=== PATIENT | male | born 1990 | race Caucasian/White ===

== ENCOUNTER 2018-04-28 00:03 | Emergency (ER) | payer OTHER ==
[~2018-04-28] VITALS: Ht 185.4 cm; Wt 95.3 kg
[2018-04-28 00:26] VITALS: BP 113/73
[2018-04-28] MEDS ORDERED: AMOXICILLIN TRIHYDRATE 250 MG CAPSULE PO ONE (01:00)
[2018-04-28] MEDS ORDERED: IBUPROFEN 600 MG TABLET PO ONE ×2 (01:00→01:47)
[2018-04-28] MEDS ORDERED: AMOXICILLIN TRIHYDRATE 250 MG CAPSULE ONE (01:47)
== END 2018-04-28 01:55 | disposition home or self-care (01) ==
LOC: ER 00:26
DX: J03.90 Acute tonsillitis, unspecified (principal); F17.210 Nicotine dependence, cigarettes, uncomplicated; F10.10 Alcohol abuse, uncomplicated
CPT/HCPCS: 71045-TC; A4606; Z7610

== ENCOUNTER 2018-06-18 13:30 | Emergency (ER) | payer OTHER ==
[~2018-06-18] VITALS: Ht 185.4 cm; Wt 90.7 kg
[2018-06-18 13:36] VITALS: BP 124/71
[2018-06-18] MEDS ORDERED: MORPHINE SULFATE INJ 4 MG/ML DISP.SYRIN ONE (14:00)
[2018-06-18] MEDS ORDERED: MORPHINE SULFATE INJ 10 MG/ML DISP.SYRIN IM ONE (14:00)
[2018-06-18] MEDS ORDERED: HYDROCODONE/APAP 5/325MG 1 EACH TABLET ONE (14:55)
[2018-06-18] MEDS ORDERED: HYDROCODONE/APAP 5/325MG 1 EACH TABLET PO ONE (15:00)
== END 2018-06-18 15:03 | disposition home or self-care (01) ==
LOC: ER 13:33
DX: M54.5 Low back pain (principal); F17.200 Nicotine dependence, unspecified, uncomplicated
CPT/HCPCS: A4606; J2270; Z7610

== ENCOUNTER 2018-11-30 22:38 | Emergency (ER) | payer OTHER ==
[~2018-11-30] VITALS: Ht 185.4 cm; Wt 102.1 kg
--- NOTE | 2018-11-30 23:04 | NUR ---
BIBSELF C/O COUGH X2 WEEK. YELLOW SPUTUM. -FEVER +HEADACHE. COUGH IS MOSTLY DRY, SOMETIMES PRODUCES SPUTUM. PT IS AOX4, AMBULATORY, VSS, RR EVEN AND UNLABORED. SKIN WARM, DRY, INTACT. NO ACUTE DISTRESS NOTED. NO OTHER COMPLAINTS AT THIS TIME. READY FOR EVAL.
[2018-11-30] MEDS ORDERED: ACETAMINOPHEN ES 500 MG TABLET ONE (23:09)
[2018-11-30] MEDS ORDERED: predniSONE 20 MG TABLET ONE (23:10)
[2018-11-30] MEDS ORDERED: ALBUTEROL FS 2.5 MG/3 ML VIAL.NEB ONE ×2 (23:17→23:43)
[2018-11-30] MEDS ORDERED: IPRATROPIUM NEB FS 0.5 MG/2.5 ML AMPUL.NEB ONE ×2 (23:17→23:43)
--- NOTE | 2018-11-30 23:19 | NUR ---
RT AT BEDSIDE FOR BREATHING TX
--- NOTE | 2018-11-30 23:27 | NUR ---
REPORT GIVEN TO MARQUEZ BRENNAN FOR KHAN[facility]
[2018-11-30] MEDS ORDERED: ALBUTEROL FS 2.5 MG/3 ML VIAL.NEB NEB ONE (23:30)
[2018-11-30] MEDS ORDERED: predniSONE 20 MG TABLET PO ONE (23:30)
[2018-11-30] MEDS ORDERED: ACETAMINOPHEN 325 MG TABLET PO ONE (23:30)
[2018-11-30] MEDS ORDERED: IPRATROPIUM NEB FS 0.5 MG/2.5 ML AMPUL.NEB NEB ONE (23:30)
--- NOTE | 2018-11-30 23:44 | NUR ---
XRAY AT BEDSIDE.
[2018-12-01] MEDS ORDERED: IPRATROPIUM NEB FS 0.5 MG/2.5 ML AMPUL.NEB NEB ONE
[2018-12-01] MEDS ORDERED: ALBUTEROL FS 2.5 MG/3 ML VIAL.NEB CONTNEB ONE
[2018-12-01 00:52] VITALS: BP 109/55
== END 2018-12-01 00:53 | disposition home or self-care (01) ==
LOC: ER 22:43
DX: J18.9 Pneumonia, unspecified organism (principal); F17.210 Nicotine dependence, cigarettes, uncomplicated
CPT/HCPCS: 71045; 94640; 94644; 99285; A4606; J7512; Z7610

== ENCOUNTER 2019-09-02 21:21 | Emergency (ER) | payer OTHER ==
[~2019-09-02] VITALS: Ht 185.4 cm; Wt 107.5 kg
[2019-09-02 21:37] VITALS: BP 144/80
[2019-09-02] MEDS ORDERED: ALBUTEROL FS 2.5 MG/3 ML VIAL.NEB ONE (21:53)
[2019-09-02] MEDS ORDERED: IPRATROPIUM NEB FS 0.5 MG/2.5 ML AMPUL.NEB ONE (21:53)
[2019-09-02] MEDS ORDERED: ALBUTEROL FS 2.5 MG/3 ML VIAL.NEB NEB ONE (22:00)
[2019-09-02] MEDS ORDERED: IPRATROPIUM NEB FS 0.5 MG/2.5 ML AMPUL.NEB NEB ONE (22:00)
== END 2019-09-02 22:29 | disposition home or self-care (01) ==
LOC: ER 21:23
DX: R05 Cough (principal); F10.10 Alcohol abuse, uncomplicated; F17.200 Nicotine dependence, unspecified, uncomplicated; Y90.9 Presence of alcohol in blood, level not specified